=== PATIENT | male | born 1960 | race African-American/Black ===

== ENCOUNTER 2020-03-12 20:42 | Emergency (ER) | payer OTHER ==
[~2020-03-12] VITALS: Ht 180.3 cm; Wt 77.1 kg
--- NOTE | 2020-03-12 21:13 | NUR ---
BIBS. TO ER BED 14. AAOX4. NOT IN RESP DISTRESS. AMBUALTORY. CAME IN FOR SUICIDAL IDEATION AND ATTEMPTED TO HANG HIMSELF AT THE BOARD AND CARE. PT IS POSITIVE FOR AUDITORY HALLUCINATIONS - TELLING HIM TO HANG HIMSELF. PT IS GOWN, BELONGINGS PLACED IN LOCKER. 1:1 SITTER AT BEDSIDE. MD AT BEDSIDE FOR EVAL. ORDERS RECEIVED NOTED AND CARRIED OUT
[2020-03-12 21:19] LABS: BASOPHILS # (AUTO) 0.1 /CMM (0.0-0.2); BASOPHILS % (AUTO) 1.1 % (0.0-2.0); EOSINOPHILS % (AUTO) 2.7 % (0.0-6.0); HEMATOCRIT 48 % (39-51); HEMOGLOBIN 16.1 g/dL (13.5-17.5); LYMPHOCYTES # (AUTO) 2.6 /CMM (0.8-4.8); LYMPHOCYTES % (AUTO) 47.3 % (20.0-44.0); MEAN CORPUSCULAR HGB CONC 34 g/dl (31.0-36.0); MEAN CORPUSCULAR VOLUME 94 fL (80-96); MONOCYTES # (AUTO) 0.5 /CMM (0.1-1.30); MONOCYTES % (AUTO) 9.5 % (2.0-12.0); NEUTROPHILS # (AUTO) 2.1 /CMM (1.8-8.9); NEUTROPHILS % (AUTO) 39.4 % (43.0-81.0); PLATELET COUNT (AUTO) 196 /CMM (150-450); RED BLOOD CELL COUNT(AUTO) 5.08 MIL/uL (4.5-6.0); WHITE BLOOD COUNT (AUTO) 5.4 K/uL (4.3-11.0)
[2020-03-12 21:54] LABS: ALANINE AMINOTRANSFERASE 63 U/L (12-78); ALBUMIN 3.9 g/dL (3.4-5.0); ALKALINE PHOSPHATASE 108 U/L (46-116); ASPARTATE AMINOTRANSFERASE 36 U/L (15-37); BILIRUBIN,TOTAL 0.3 mg/dL (0.2-1.0); CARBON DIOXIDE 28 mmol/L (21-32); CHLORIDE 104 mmol/L (98-107); CREATININE 1.2 mg/dL (0.6-1.3); GLUCOSE 104 mg/dL (74-106); POTASSIUM 3.6 mmol/L (3.5-5.1); SODIUM SERUM 142 mmol/L (136-145); TOTAL PROTEIN, SERUM 8.2 g/dL (6.4-8.2); UREA NITROGEN, BLOOD 12 mg/dL (7-18)
[2020-03-12 21:55] LABS: SALICYLATE 2.2 mg/dL (2.8-20.0)
[2020-03-12 22:04] LABS: BILIRUBIN,DIRECT 0.1 mg/dL (0.0-0.2); CALCIUM, SERUM 9.2 mg/dL (8.5-10.1)
[2020-03-12 22:15] LABS: ACETAMINOPHEN 0 ug/ml (10-30); ALCOHOL, BLOOD < 3 mg/dL (0-0)
[2020-03-12 22:19] LABS: APPEARANCE,URINE Clear (CLEAR); BILIRUBIN,URINE SMALL (NEGATIVE); BLOOD, URINE Negative Ery/uL (NEGATIVE); COLOR,URINE Yellow (YELLOW); KETONES,URINE Negative (NEGATIVE); LEUKOCYTE ESTERASE ,URINE Negative (NEGATIVE); NITRITE, URINE Negative (NEGATIVE); PH,URINE 5.5 (5.0-8.0); PROTEIN,URINE Negative (NEGATIVE); UGLUCOSE Negative (NEGATIVE); UROBILINOGEN,URINE 0.2 EU/dL (0.2)
[2020-03-12 22:40] LABS: BACTERIA,URINE Few /HPF (None Seen); RBC,URINE 0-2 /HPF (0-2); SQUAMOUS EPITHELIAL CELL,UR Few /HPF (None Seen); WBC,URINE 0-2 /HPF (0-3)
[2020-03-12 22:41] LABS: MUCUS,URINE Few /LPF (None Seen)
--- NOTE | 2020-03-12 23:04 | NUR ---
CLINICAL PACKET FAXED TO [facility]
--- NOTE | 2020-03-13 00:23 | NUR ---
PER DRAKE FROM [facility], NO BEDS AVAILABLE AT THIS TIME
--- NOTE | 2020-03-13 04:47 | NUR ---
PER [facility] FROM [facility], PT INSURANCE ONLY ACCEPTED AT [facility]. PENDING BED AVAILABILITY Addendum: 03/13/20 at 0535 by [facility]
--- NOTE | 2020-03-13 06:42 | NUR ---
SPOKE WITH COLE FROM [facility], NO BED AVAILABLE AT THIS TIME
--- NOTE | 2020-03-13 10:04 | NUR ---
CALLED [facility] [phone] INTAKE COLE WILL CALL US AFTER 12PM [id number], [place] [address]
--- NOTE | 2020-03-13 11:23 | NUR ---
[facility] [phone] INTAKE COLE GOING TO ROOM 302- CALL FOR REPORT [phone]
--- NOTE | 2020-03-13 11:45 | NUR ---
REPORT GIVEN TO NICK WEBB AT [facility]. PT AWAITING TRANSPORT AMBULANCE.
--- NOTE | 2020-03-13 11:49 | NUR ---
CALLED [facility] [phone] ETA IS 1315 PER WES.
[2020-03-13 12:15] VITALS: BP 123/57
--- NOTE | 2020-03-13 13:26 | NUR ---
REPORT GIVEN TO AMCAROL HENRIQUEZ, FOR [facility]
== END 2020-03-13 13:28 ==
LOC: ER 20:48
DX: R45.851 Suicidal ideations (principal); F20.0 Paranoid schizophrenia; F32.9 Major depressive disorder, single episode, unspecified; Z04.6 Encounter for general psychiatric examination, requested by authority
CPT/HCPCS: 36415; 80048; 80076; 80305; 80307; 80329; 81001; 85025; 99285; G0480; 81000-TC

== ENCOUNTER 2020-11-08 17:53 | Emergency (ER) | payer OTHER ==
[~2020-11-08] VITALS: Ht 180.3 cm; Wt 81.6 kg
--- NOTE | 2020-11-08 20:17 | NUR ---
CALLED FOR TRIAGE. NO REWSPONSE
--- NOTE | 2020-11-08 20:41 | NUR ---
pt bibself for depression, pt states si with plans to hang himself denies hi. pt aox4 rr even and unlabored. no sob noted. no nvd at this time. no acute distress noted. pt waiting for md bennett. staff within line of sight. pt request to go to [facility]
[2020-11-08 21:03] LABS: BILIRUBIN,URINE NEGATIVE (NEGATIVE); BLOOD, URINE NEGATIVE Ery/uL (NEGATIVE); COLOR,URINE YELLOW (YELLOW); LEUKOCYTE ESTERASE ,URINE NEGATIVE (NEGATIVE); NITRITE, URINE NEGATIVE (NEGATIVE); PROTEIN,URINE NEGATIVE (NEGATIVE); UGLUCOSE NEGATIVE (NEGATIVE); UROBILINOGEN,URINE 0.2 EU/dL (0.2)
[2020-11-08 21:37] LABS: BASOPHILS % (AUTO) 0.4 % (0.0-2.0); EOSINOPHILS % (AUTO) 2.3 % (0.0-6.0); HEMATOCRIT 47 % (39-51); HEMOGLOBIN 15.3 g/dL (13.5-17.5); LYMPHOCYTES # (AUTO) 2.3 /CMM (0.8-4.8); LYMPHOCYTES % (AUTO) 44.9 % (20.0-44.0); MEAN CORPUSCULAR HGB CONC 33 g/dl (31.0-36.0); MEAN CORPUSCULAR VOLUME 96 fL (80-96); MONOCYTES # (AUTO) 0.4 /CMM (0.1-1.30); MONOCYTES % (AUTO) 7.4 % (2.0-12.0); NEUTROPHILS # (AUTO) 2.3 /CMM (1.8-8.9); PLATELET COUNT (AUTO) 172 /CMM (150-450); RED BLOOD CELL COUNT(AUTO) 4.87 MIL/uL (4.5-6.0); WHITE BLOOD COUNT (AUTO) 5.2 K/uL (4.3-11.0)
[2020-11-08 21:49] LABS: CALCIUM, SERUM 8.8 mg/dL (8.5-10.1); CARBON DIOXIDE 28 mmol/L (21-32); CHLORIDE 103 mmol/L (98-107); CREATININE 0.9 mg/dL (0.6-1.3); GLUCOSE 127 mg/dL (74-106); POTASSIUM 3.4 mmol/L (3.5-5.1); SODIUM SERUM 140 mmol/L (136-145); UREA NITROGEN, BLOOD 11 mg/dL (7-18)
[2020-11-08 21:55] LABS: ALANINE AMINOTRANSFERASE 56 U/L (12-78); ALBUMIN 3.7 g/dL (3.4-5.0); ALCOHOL, BLOOD < 3 mg/dL (0-0); ALKALINE PHOSPHATASE 92 U/L (46-116); ASPARTATE AMINOTRANSFERASE 32 U/L (15-37); BILIRUBIN,DIRECT 0.2 mg/dL (0.0-0.2); BILIRUBIN,TOTAL 0.5 mg/dL (0.2-1.0); TOTAL PROTEIN, SERUM 7.9 g/dL (6.4-8.2)
[2020-11-08 22:10] LABS: ACETAMINOPHEN < 10 ug/ml (10-30)
[2020-11-08] MEDS ORDERED: POTASSIUM CHLORIDE 20 MEQ TAB.PRT.SR PO ONE ×2 (22:26→22:30)
--- NOTE | 2020-11-08 22:31 | NUR ---
CLINICAL FAXED TO [facility].
--- NOTE | 2020-11-09 01:46 | NUR ---
pt appears comfortable. sleeping. sitter within line of sight.
--- NOTE | 2020-11-09 02:29 | NUR ---
JESSENIA HANSON FROM [facility], ONLY ABLE TO ACCEPT PATIENT AT [facility] DUE TO INSURANCE. NO BEDS AVAILABLE AT THIS TIME. MD SALDANA
--- NOTE | 2020-11-09 04:51 | NUR ---
pt asleep at this time. appears comfortable.
--- NOTE | 2020-11-09 05:45 | NUR ---
Dirk aguilar in [facility] - 11/09/20 at 0707 by OMARI pt denies si/hi at this time. pt aox4. pt request to leave. dr. bing renner. pt ambulatory with steady gait.
--- NOTE | 2020-11-09 05:52 | NUR ---
PT ASLEEP, NO ACUTE DISTRESS NOTED, RESP EVEN AND UNLABORED. CALL LIGHT WITHIN REACH. WILL CONTINUE TO MONITOR PT CLOSELY. 1:1 SITTER AT [facility] FOR PT SAFETY.
--- NOTE | 2020-11-09 05:55 | NUR ---
pt denies si/hi at this time. pt aox4. pt request to leave. dr. smart aware. pt ambulatory with steady gait.
[2020-11-09 07:08] VITALS: BP 114/69
== END 2020-11-09 07:08 | disposition home or self-care (01) ==
LOC: ER 18:00
DX: R45.851 Suicidal ideations (principal); F20.0 Paranoid schizophrenia; E87.6 Hypokalemia; Z82.49 Family history of ischemic heart disease and other diseases of the circulatory system; Z20.828 Contact with and (suspected) exposure to other viral communicable diseases; Z72.0 Tobacco use
CPT/HCPCS: 36415; 80048; 80076; 80299; 80307; 80320; 81003; 85025; 87426; 99285; 99406; C9803; G0480